=== PATIENT | female | born 1960 | race Caucasian/White ===

== ENCOUNTER 2023-12-10 21:54 | Observation (INO) | payer SELFPAY ==
[2023-12-10 23:02] LABS: Absolute Basophils 0.1 K/uL (0-0.5); Absolute Eosinophils 0.2 K/uL (0-0.5); Absolute Lymphocytes (CBC) 2.1 K/uL (0.7-4.9); Absolute Monocytes 0.6 K/uL (0.1-1.3); Basophils % 1.2 % (0-1.3); Eosinophils % 2.3 % (0-4.4); Hemoglobin 6.9 g/dL (12.0-15.0); Lymphocytes % 30.2 % (15.3-44.8); MCH 17.9 pg (27.0-35.0); MCHC 29.9 g/dL (32.0-36.0); MCV 59.9 fL (80-100); MPV 7.9 fL (7.6-11.3); Monocytes % 8.6 % (3.3-12.3); Neutrophils % 57.7 % (41.7-73.7); Nucleated Red Blood Cells % 0.1 % (0-0); Platelets 421 thou/uL (152-406); RBC Red Blood Cell Count 3.83 M/uL (3.86-4.86); Red Cell Distribution Width 18.8 % (12.1-15.2)
[2023-12-10 23:08] LABS: Specific Gravity 1.028 (1.005-1.030); Sqamous Epithelial <5 /HPF (None Seen); Urine Bacteria <20 /HPF (<20); Urine Bilirubin NEGATIVE (Negative); Urine Blood Negative (Negative); Urine Clarity Clear (Clear); Urine Color Light-Yellow (Yellow); Urine Culture Reflex Order REFLEXED; Urine Glucose 3+ (Negative); Urine Ketones NEGATIVE (Negative); Urine Microscopic Reflex YN ORDER UMIC; Urine Mucus 2+ /HPF (None Seen); Urine Nitrite NEGATIVE (Negative); Urine Protein TRACE (Negative); Urine RBC <5 /HPF (None Seen); Urine Urobilinogen Normal (Normal); Urine WBC 20-50 /HPF (<5); Urine Yeast (Budding) Trace /HPF (None Seen); Urine pH 5.5 (5.0-7.0)
[2023-12-10 23:23] LABS: Albumin 3.2 g/dL (3.4-5.0); Albumin/Globulin Ratio 0.8 (1.1-1.8); Anion Gap 7.7 mEq/L (5.0-15.0); Bilirubin Total 0.3 mg/dL (0.2-1.0); Globulin 4.1 g/dL (2.3-3.5); Potassium 3.7 mEq/L (3.5-5.1); Protein, Total 7.3 g/dL (6.4-8.2)
--- NOTE | 2023-12-10 23:34 | ER ---
Nurse's Notes [facility] Name: Shelli Mccullough Age: 63 yrs Sex: Female : 1960 Arrival Date: 12/10/2023 Time: 21:54 Bed 14 Private MD: Diagnosis: Anemia, unspecified Presentation: 12/09 22:07 Chief complaint: Patient states: Pt sent by PCP for hemoglobin of 6.5. Pt states she tl4 needs a blood transfusion. Pt c/o dizziness, SOB. Coronavirus screen: At this time, the client does not indicate any symptoms associated with coronavirus-19. Ebola Screen: No symptoms or risks identified at this time. Initial Sepsis Screen: Does the patient meet any 2 criteria? No. Patient's initial sepsis screen is negative. Does the patient have a suspected source of infection? No. Patient's initial sepsis screen is negative. Risk Assessment: Do you want to hurt yourself or someone else? Patient reports no desire to harm self or others. Onset of symptoms was August 2023. 22:07 Method Of Arrival: Ambulatory tl4 22:07 Acuity: ANNY 3 tl4 Triage Assessment: 22:15 General: Appears in no apparent distress. Behavior is calm, cooperative. Pain: Denies tl4 pain. EENT: No signs and/or symptoms were reported regarding the EENT system. Neuro: Level of Consciousness is awake, alert, obeys commands, Oriented to person, place, time, situation, Moves all extremities. Full function Gait is steady, Speech is normal. Neuro: Reports dizziness. Cardiovascular: Capillary refill < 3 seconds Patient's skin is warm and dry. Respiratory: Airway is patent Respiratory effort is even, unlabored, Respiratory pattern is regular, symmetrical. GI: No signs and/or symptoms were reported involving the gastrointestinal system. : No signs and/or symptoms were reported regarding the genitourinary system. Derm: No signs and/or symptoms reported regarding the dermatologic system. Musculoskeletal: No signs and/or symptoms reported regarding the musculoskeletal system. Historical: - Allergies: 22:13 No Known Allergies; tl4 - PMHx: 22:13 Hepatitis A; Anemia; Hypertensive disorder; Diabetes mellitus; tl4 - PSHx: 22:13 Cholecystectomy; Total abdominal hysterectomy; tl4 - Immunization history:: Adult Immunizations unknown. - Infectious Disease History:: Denies. - Social history:: Smoking status: Patient denies any tobacco usage or history of. Patient/guardian denies using alcohol, street drugs. Screenin:52 [facility] ED Fall Risk Assessment (Adult) History of falling in the last 3 months, cm10 including since admission No falls in past 3 months (0 pts) Confusion or Disorientation No (0 pts) Intoxicated or Sedated No (0 pts) Impaired Gait No (0 pts) Mobility Assist Device Used No (0 pt) Altered Elimination No (0 pt) Score/Fall Risk Level 0 - 2 = Low Risk Oriented to surroundings, Maintained a safe environment, Hourly rounding (assess needs \T\ fall precautionary measures) done. Abuse screen: Denies threats or abuse. Denies injuries from another. Nutritional screening: No deficits noted. Tuberculosis screening: No symptoms or risk factors identified. Assessment: 23:00 General: Appears in no apparent distress. comfortable, Behavior is calm, cooperative. cm10 Pain: Denies pain. Neuro: No deficits noted. Level of Consciousness is awake, alert, obeys commands, Oriented to person, place, time, situation. Cardiovascular: No deficits noted. Patient's skin is warm and dry. Respiratory: No deficits noted. Airway is patent Respiratory effort is even, unlabored, Respiratory pattern is regular, symmetrical. GI: No deficits noted. No signs and/or symptoms were reported involving the gastrointestinal system. : No deficits noted. No signs and/or symptoms were reported regarding the genitourinary system. EENT: No deficits noted. No signs and/or symptoms were reported regarding the EENT system. Derm: No deficits noted. Skin is intact, Skin is pink, warm \T\ dry. Musculoskeletal: No deficits noted. Range of motion: intact in all extremities. Vital Signs: 22:07 BP 138 / 80; Pulse 70; Resp 16; Temp 98.9(O); Pulse Ox 99% on R/A; Weight 80 kg; Height tl4 5 ft. 2 in. ; Pain 0/10; 23:00 BP 122 / 67; Pulse 71; Resp 16; Pulse Ox 100% on R/A; Pain 0/10; pf1 12/10 00:00 BP 131 / 84; Pulse 73; Resp 16; Pulse Ox 100% on R/A; Pain 0/10; pf1 01:00 BP 146 / 79; Pulse 77; Resp 16; Temp 97.9; Pulse Ox 100% on R/A; Pain 0/10; pf1 12/09 22:07 Body Mass Index 32.26 (80.00 kg, 157.48 cm) tl4 12/09 22:07 Pain Scale: Adult tl4 23:00 Pain Scale: Adult pf1 12/10 00:00 Pain Scale: Adult pf1 01:00 Pain Scale: Adult pf1 ED Course: 12/09 22:00 Patient arrived in ED. im 22:09 Beckie Wang FNP-C is PHCP. kb 22:09 Cliff Kearney MD is Attending Physician. kb 22:12 Triage completed. tl4 22:15 Arm band placed on left wrist. tl4 22:51 CBC with Diff Sent. cm10 22:51 CMP Sent. cm10 22:51 Lipase Sent. cm10 22:51 Urinalysis w/ reflexes Sent. cm10 22:51 Type And Screen Sent. cm10 22:51 Initial lab(s) drawn, by nv, sent to lab. Urine collected: clean catch specimen, T\T\S cm10 collected, blood band applied to patient. Inserted saline lock: 20 gauge in left forearm, using aseptic technique. Blood collected. 22:52 Patient has correct armband on for positive identification. Bed in low position. Call cm10 light in reach. Side rails up X2. 23:33 Erich Dewey MD is Hospitalizing Provider. kb 12/10 00:53 No provider procedures requiring assistance completed. Patient admitted, IV remains in pf1 place. Administered Medications: No medications were administered Medication: 12/09 22:52 VIS not applicable for this client. cm10 Outcome: 23:33 Decision to Hospitalize by Provider. kb 12/10 01:30 Admitted to Med/surg Other patient left AMA, Patient stated wanted to go home and pf1 arrange future blood transfusion with her daughter. 02:15 Condition: stable pf1 02:15 Instructed on risks of leaving AMA and the need for blood transfusion, Language line Desk Lieutenant used Kiran [id number]. 02:39 Patient left the ED. pf1 Signatures: Beckie Wang FNP-C FNP-Ckb Finley, Pamala RN RN pf1 Rossy Alejandro Clarissa RN RN cm10 Rusty Carcamo RN RN tl4 Corrections: (The following items were deleted from the chart) 02:39 02:15 AMA AMA form signed pf1 pf1
--- NOTE | 2023-12-10 23:34 | EDPHYS ---
Physician Documentation [facility] Name: Shelli Mccullough Age: 63 yrs Sex: Female : 1960 Arrival Date: 12/10/2023 Time: 21:54 Bed 14 Private MD: PIOTR Physician Cliff Kearney HPI: 12/09 23:25 This 63 yrs old Female presents to ER via Ambulatory with complaints of Abnormal Lab kb Results. 23:25 Pt is a 63 year old female who presents for shortness of breath on exertion, dizziness kb and weakness. States she has a history of anemia so she asked the clinic to check her blood counts on Wednesday. States she got a call today that her levels were low and she needed a transfusion. . Historical: - Allergies: 22:13 No Known Allergies; tl4 - PMHx: 22:13 Hepatitis A; Anemia; Hypertensive disorder; Diabetes mellitus; tl4 - PSHx: 22:13 Cholecystectomy; Total abdominal hysterectomy; tl4 - Immunization history:: Adult Immunizations unknown. - Infectious Disease History:: Denies. - Social history:: Smoking status: Patient denies any tobacco usage or history of. Patient/guardian denies using alcohol, street drugs. ROS: 23:25 Constitutional: As per HPI kb Exam: 23:25 Constitutional: This is a well developed, well nourished patient who is awake, alert, kb and in no acute distress. Head/Face: Normocephalic, atraumatic. ENT: Moist Mucous membranes Cardiovascular: Regular rate Respiratory: Respirations even and unlabored. No increased work of breathing. Talking in full sentences Abdomen/GI: Soft, non-tender. No distention Skin: Warm, dry with normal turgor. Normal color. MS/ Extremity: Pulses equal, no cyanosis. Neurovascular intact. Full, normal range of motion. Neuro: Awake and alert, GCS 15, oriented to person, place, time, and situation. Moves all extremities. Normal gait. Vital Signs: 22:07 BP 138 / 80; Pulse 70; Resp 16; Temp 98.9(O); Pulse Ox 99% on R/A; Weight 80 kg; Height tl4 5 ft. 2 in. ; Pain 0/10; 23:00 BP 122 / 67; Pulse 71; Resp 16; Pulse Ox 100% on R/A; Pain 0/10; pf1 12/10 00:00 BP 131 / 84; Pulse 73; Resp 16; Pulse Ox 100% on R/A; Pain 0/10; pf1 01:00 BP 146 / 79; Pulse 77; Resp 16; Temp 97.9; Pulse Ox 100% on R/A; Pain 0/10; pf1 12/09 22:07 Body Mass Index 32.26 (80.00 kg, 157.48 cm) tl4 12/09 22:07 Pain Scale: Adult tl4 23:00 Pain Scale: Adult pf1 12/10 00:00 Pain Scale: Adult pf1 01:00 Pain Scale: Adult pf1 MDM: 12/09 22:09 Patient medically screened. kb 23:30 Differential Diagnosis anemia, abnormal electrolytes, dehydration. Data reviewed: vital kb signs, nurses notes. Consideration of Admission/Observation Patient was admitted/placed on observation. Escalation of care including admission/observation considered. Management of patient was discussed with the following: Hospitalist: Dr Dewey accepts pt for admission. Historians other than the Patient: Family Member: family. Counseling: I had a detailed discussion with the patient and/or guardian regarding the historical points, exam findings, and any diagnostic results supporting the discharge/admit diagnosis, lab results, the need for further work-up and treatment in the hospital. 12/09 22:10 Order name: CBC with Diff; Complete Time: 23:15 kb 12/09 22:10 Order name: CMP; Complete Time: 23:23 kb 12/09 22:10 Order name: Lipase; Complete Time: 23:23 kb 12/09 22:10 Order name: Urinalysis w/ reflexes; Complete Time: 23:15 kb 12/09 22:10 Order name: Type And Screen; Complete Time: 00:01 kb 12/09 23:12 Order name: Urine Culture [facility] 12/09 23:33 Order name: TIBC 12/09 23:33 Order name: Ferritin 12/09 23:33 Order name: B12 12/09 23:34 Order name: Retic Count 12/10 00:27 Order name: Packed RBC Leukored [facility] 12/10 00:27 Order name: Vitamin B12 Level [facility] 12/10 00:27 Order name: Hematocrit [facility] 12/10 00:27 Order name: Hemoglobin [facility] 12/10 00:27 Order name: Transferrin Sat/Iron Binding [facility] 12/10 00:27 Order name: CBC with Automated Diff [facility] 12/10 00:27 Order name: CBC with Automated Diff [facility] 12/10 00:27 Order name: Comprehensive Metabolic Panel [facility] 12/10 00:27 Order name: Comprehensive Metabolic Panel [facility] 12/10 00:27 Order name: Ferritin [facility] 12/10 00:27 Order name: Ferritin [facility] 12/10 00:27 Order name: Lipid Profile [facility] 12/10 00:27 Order name: Lipid Profile [facility] 12/10 00:27 Order name: Magnesium [facility] 12/10 00:27 Order name: Magnesium [facility] 12/10 00:27 Order name: Magnesium [facility] 12/10 00:27 Order name: Magnesium [facility] 12/10 00:27 Order name: Lactoferrin, Stool [facility] 12/10 00:28 Order name: Gastric Occult Blood [facility] 12/10 00:30 Order name: ABO/RH typing [facility] 12/10 00:30 Order name: Antibody Screen [facility] 12/09 22:10 Order name: IV Saline Lock; Complete Time: 22:51 kb 12/09 22:10 Order name: Labs collected and sent; Complete Time: 22:51 kb Administered Medications: No medications were administered Disposition Summary: 12/10/23 23:33 Hospitalization Ordered Notes: Hospitalization Status: Observation kb Provider: Erich Dewey Location: Telemetry/MedSurg (observation) kb Condition: Stable kb Problem: new kb Symptoms: are unchanged kb Bed/Room Type: Standard Room Assignment: 209(12/11/23 01:17) cm10 Diagnosis - Anemia, unspecified kb Forms: - Medication Reconciliation Form kb - SBAR form kb - Leadership Thank You Letter kb Signatures: Dispatcher [employer] Beckie Rodriguez FNP-C PRISCILA-Emi Weber RN RN cm10 Rusty Carcamo RN RN tl4 Corrections: (The following items were deleted from the chart) 22:10 22:10 CBC+H.LAB.BRZ ordered. EDMS EDMS 22:10 22:10 COMPREHENSIVE METABOLIC PANEL+C.LAB.BRZ ordered. EDMS EDMS 22:10 22:10 LIPASE+C.LAB.BRZ ordered. EDMS EDMS 22:10 22:10 Urinalysis+U.LAB.BRZ ordered. EDMS EDMS 22:10 22:10 TYPE AND SCREEN+BB.LAB.BRZ ordered. EDMS EDMS 23:34 23:34 TRANSFERRIN SAT/IRON BINDING+C.LAB.BRZ ordered. EDMS EDMS 23:34 23:34 FERRITIN+C.LAB.BRZ ordered. EDMS EDMS 23:34 23:34 VITAMIN B12+C.LAB.BRZ ordered. EDMS EDMS 12/10 00:37 12/09 23:33 kb cm10 12/10 01:17 00:37 223 cm10 cm10
[2023-12-11] MEDS ORDERED: HYDRALAZINE HCL 20 MG/ML VIAL IV PRN (00:21)
[2023-12-11] MEDS ORDERED: CEFTRIAXONE 1,000 MG in NA CHLORIDE 0.9% 50 ML IVPB SCH (00:21)
[2023-12-11] MEDS ORDERED: MORPHINE 2 MG/ML SYR IV PRN (00:21)
[2023-12-11] MEDS ORDERED: ONDANSETRON 4 MG/2 ML VIAL IV PRN (00:21)
[2023-12-11] MEDS ORDERED: ALBUTEROL 2.5 MG/3 ML NEB SOL NEB PRN (00:22)
[2023-12-11] MEDS ORDERED: BISACODYL E.C. 5 MG TAB PO ONE (00:25)
[2023-12-11] MEDS ORDERED: POLYETHYL GLY 3350 17 GM/DOSE PO PRN (00:25)
--- NOTE | 2023-12-11 00:32 | P.HP ---
Certification for Inpatient Patient admitted to: Observation With expected LOS: >2 Midnights Patient will require the following post-hospital care: None Practitioner: I am a practitioner with admitting privileges, knowledge of patient current condition, hospital course, and medical plan of care. Services: Services provided to patient in accordance with Admission requirements found in Title 42 Section 412.3 of the Code of Federal Regulations Patient History Date of Service: 12/11/23 Reason for admission: Weakness and abnormal labs History of Present Illness: 63-year-old female mainly Italian speaking with past medical history of hypertension diabetes mellitus diagnosed 8 months ago, HLD, -induced anemia requiring PRBC last was over 30 years ago, history of total abdominal hysterectomy who presented after seen in her PCPs clinic 3 days ago for recurrent dizziness, exertional dyspnea as well as self noted palness of her eyes. She stated she had gone to the PCP and had blood work done and was called today and told her hemoglobin was low. She states she has never had colonoscopy. She denies any nausea vomiting, she states she normally has daily bowel movement but has had constipation the last 2 days. She checks her eyes regularly due to her sister having a history of anemia. She says she was transfused once during induced miscarriage over 30 years ago. She was recently diagnosed with diabetes and placed on metformin but developed abdominal cramps and self stopped the metformin as well as atorvastatin she has not gone back to her PCP on that ED visit 3 days ago. She states she is adherent with her losartan/HCTZ for her blood pressure. She takes occasional Aleve but infrequently average 1-2 times per week. She has never noticed any black tarry stool or hematochezia. On arrival in the ED vital signs were stable blood pressure in the 140s over 70s, and nonfebrile nontachycardic, laboratory workup shows glucose of 175, sodium of 132 otherwise normal, UA suggestive of UTI, CBC shows hemoglobin of 6.9. Hemoglobin was 6.5 on result from her PCPs office. She states she has normal lab work 1 year ago but unable to recall what her hemoglobin was then She has been admitted for symptomatic anemia. Daughter at bedside serving as coagulant dipper. Patient understands some Jamaican and able to hold some conversation - Past Medical/Surgical History -: Hypertension -: Diabetes mellitus -: Hyperlipidemia -: Total abdominal hysterectomy - Social History Smoking Status: Never smoker Alcohol use: No CD- Drugs: No Caffeine use: No Place of Residence: Home Review of Systems General: Weakness Eyes: Other (Conjunctiva pallor) ENT: Unremarkable Respiratory: SOB with Excertion Cardiovascular: Light Headedness Gastrointestinal: Constipation Genitourinary: Unremarkable Musculoskeletal: Unremarkable Integumentary: Unremarkable Neurological: Weakness Physical Examination - Physical Exam General: Alert, In no apparent distress, Oriented x3 HEENT: Atraumatic, Normocephalic, PERRLA, Other (Conjunctiva pallor) Neck: Supple, 2+ carotid pulse no bruit, JVD not distended Respiratory: Clear to auscultation bilaterally, Normal air movement Cardiovascular: No edema, Normal pulses, Regular rate/rhythm, Normal S1 S2 Capillary refill: <2 Seconds Gastrointestinal: Normal bowel sounds, Soft and benign, Non-distended Musculoskeletal: No clubbing, No swelling Integumentary: No rashes, No breakdown, No significant lesion Neurological: Normal gait, Normal speech, Normal strength at 5/5 x4 extr, Sensation intact, Cranial nerves 3-12 intact External genitalia: No edema, No lesions - Studies Laboratory Data (last 24 hrs) 12/10/23 12/10/23 22:47 22:47 WBC 7.00 Hgb 6.9 L Hct 23.0 L Plt Count 421 H Sodium 132 L Potassium 3.7 BUN 20 H Creatinine 0.90 Glucose 174 H Total Bilirubin 0.3 AST 12 L ALT 28 Alkaline Phosphatase 85 Lipase 59 Assessment and Plan - Problems (Diagnosis) (1) Symptomatic anemia Current Visit: Yes Status: Acute (2) UTI (urinary tract infection) Current Visit: Yes Status: Acute - Plan Impression Symptomatic anemiarule out chronic lower GI bleed UTI Hypertension Diabetes mellitus Medication noncompliant Hyperlipidemia history Plan Will admit patient to observation PRBC 2 units tonight Monitor H&H post PRBC Obtain stool for occult blood to rule out lower GI bleed If positive occult blood will consult GI for colonoscopy Obtain iron ferritin vitamin B12 levels Insulin sliding scale with Accu-Cheks Resume losartan/HCTZ for BP control IV hydralazine as needed SCDs for DVT prophylaxis Possible discharge in 24 to 48 hours Discharge Plan: Home - Advance Directives Does patient have a Living Will: No Does patient have a Durable POA for Healthcare: No Physician Review: Patient Assessed, Agree with Above Assessment and Plan
[2023-12-11] MEDS ORDERED: NA CHLORIDE 0.9% 250 ML IV SCH (01:00)
[2023-12-11] MEDS ORDERED: NA CHLORIDE 0.9% 1,000 ML IV SCH (01:00)
[2023-12-11 01:18] LABS: Percent Reticulocyte Count 1.87 % (0.4-2.05); RBC Red Blood Cell Count 3.8 M/uL (3.86-4.86)
[2023-12-11 01:51] LABS: Ferritin 2.4 ng/mL (8-388)
[2023-12-11 03:07] VITALS: O2SAT 100
[2023-12-11 03:44] VITALS: BP 146/79; TEMP 97.9
[2023-12-11] MEDS ORDERED: INSULIN REGULAR (HUMAN) 100 UNIT/ML SQ SCH (07:30)
[2023-12-11] MEDS ORDERED: FAMOTIDINE 20 MG TAB PO SCH (09:00)
== END 2023-12-11 02:23 | disposition left against medical advice (07) ==
LOC: ER 21:54 → 2ND 12-11 00:22
PROVIDERS: ADMIT Internal Medicine; ATTEND Hospitalist
DX: D64.9 Anemia, unspecified (principal); R53.1 Weakness; I10 Essential (primary) hypertension; N39.0 Urinary tract infection, site not specified; E11.9 Type 2 diabetes mellitus without complications; E78.5 Hyperlipidemia, unspecified; Z91.148 Patient's other noncompliance with medication regimen for other reason
CPT/HCPCS: 36415; 80053; 81001; 82607; 82728; 83540; 83690; 84466; 85025; 85044; 86850; 86900; 86901; 87086; 87088; G0378